=== PATIENT | female | born 1945 | race Caucasian/White ===

== ENCOUNTER 2017-01-23 15:12 | Inpatient (IN) | payer MEDICARE ==
[~2017-01-23] VITALS: Ht 167.6 cm; Wt 106.6 kg
[2017-01-23] MEDS ORDERED: fentaNYL PF VIAL 100 MCG/2 ML VIAL IV ONE (15:30)
[2017-01-23] MEDS ORDERED: DIPHTH,PERTUSS(ACELL),TET TOX 0.5 ML DISP.SYRIN. VAX IM ONE (15:30)
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
[2017-01-23] MEDS ORDERED: KETOROLAC TROMETHAMINE 30 MG/ML INJ. IV ONE (17:00)
[2017-01-23] MEDS ORDERED: MORPHINE SULFATE 10 MG/ML VIAL. IV ONE (17:00)
[2017-01-23] MEDS ORDERED: OXYC-323 PO (17:02)
[2017-01-23] MEDS ORDERED: DIAZ5TAB PO (17:02)
[2017-01-23] MEDS ORDERED: diazePAM 5 MG TABLET PO ONE (17:45)
[2017-01-23 18:38] LABS: BASO # 0.1 x10^3/uL (0.0-0.2); BASO % 1 % (0-3); EOS % 1 % (0-3); HEMATOCRIT 40.5 % (36.0-47.0); HEMOGLOBIN 13.9 g/dL (12.0-15.5); LYMPH # 1.7 x10^3/uL (1.0-4.8); LYMPH % 12 % (24-48); MEAN CORPUSCULAR HEMOGLOBIN 29 pg (25-35); MEAN CORPUSCULAR HGB CONC 34 g/dL (31-37); MEAN CORPUSCULAR VOLUME 85 fL (79-100); MONO % 7 % (0-9); NEUT % 79 % (31-73); PLATELET COUNT 289 x10^3/uL (140-400); RED BLOOD COUNT 4.76 x10^6/uL (3.50-5.40); RED CELL DISTRIBUTION WIDTH 13.4 % (11.5-14.5); WHITE BLOOD COUNT 13.9 x10^3/uL (4.0-11.0)
--- NOTE | 2017-01-23 19:09 | ACF ---
Admission Forms Criteria MUSCULOSKELETAL DISEASE GRG Clinical Indications for Admission to Inpatient Care (Place 'X' for any and all applicable criteria): Hospital admission is needed for appropriate care of the patient because of 1 or more of the following: [ XI. Fracture, dislocation, or other musculoskeletal injury requiring inpatient care(medical) as indicated by 1 or more of the following(4)(5)(6)(7) [ ]a) Vertebral fracture requiring observation for instability or neurologic compromise (8) [ ]b) Compartment syndrome (proven or cannot be ruled out during observation level of care) (9) [ ]c) Limb-threatening injury [ ]d) Major injury requiring inpatient stabilization such as traction initiation or external fixation before internal fixation or closure of complex or open fracture [ ]e) Major injury requiring inpatient treatment after emergency or observation level care (as appropriate) [X]f) Severe pain requiring acute inpatient management [ ]g) Injury with suspicion of abuse or neglect (eg., child, dependent elderly) [ ]II. Newly diagnosed or suspected bone, joint, or orthopedic device infection (e.g., osteomyelitis, septic arthritis) needing 1 or more of the following(1)(2)(3) [ ]a) IV antibiotics that cannot be initiated in other than inpatient setting (e.g., patient too unstable or home infusion not available) [ ]b) Device removal or replacement [ ]c) Bone or soft tissue debridement [ ]d) Joint drainage (drain placement or repetitive aspirations) [ ]III. Severe rheumatologic disease (e.g., systemic lupus erythematosus, rheumatoid arthritis) with complications or comorbidities (Also use Optimal Recovery Care Criteria or General Recovery Criteria as appropriate on the basis of predominant condition), including 1 or more of the following( 10)(11)(12)(13) [ ]a) Severe infection (e.g., COTTON INSPECTOR infection, sepsis) (14) [ ]b) Respiratory complications, including 1 or more of the following : [ ]i) Pleural effusion with respiratory compromise [ ]ii) Pulmonary hypertension with congestive failure [ ]iii) Respiratory failure [ ]iv) Pulmonary hemorrhage (15) [ ]c) Hematologic disease, including 1 or more of the following: [ ]i) Coagulopathy with bleeding [ ]ii) Thrombosis with hypercoagulable state [ ]iii) Thrombotic thrombocytopenic purpura [ ]d) Cerebritis with seizures, psychosis, or other severe abnormalities [ ]e) Vertebral destruction with monitoring needed for cervical myelopathy& possible respiratory compromise [ ]f) Exacerbation that requires inpatient treatment (e.g., intravenous immunosuppression) (16) [ ]g) Acute renal failure [ ]h) Cerebritis with seizures, psychosis, Altered mental status, or other neurologic abnormalities [ ]i) Pericardial effusion with tamponade [ ]j) Vertebral destruction, with monitoring needed for cervical myelopathy and possible respiratory compromise [ ]IV. Severe vasculitis with complications or comorbidities (Also use Optimal Recovery Care Criteria General Recovery Criteria as appropriate on the basis of predominant condition), including 1 or more of the following(11)(12)(17)(18)(19)(20) [ ]a) Exacerbation that requires inpatient treatment (e.g., intravenous immunosuppression) (19)(21) [ ]b) Pulmonary hemorrhage (15) [ ]c) COTTON INSPECTOR vasculitis with seizures, psychosis, Altered mental status that is severe or persistent, or other severe abnormalities (22) [ ]d) Cerebral infarction [ ]e) Gastrointestinal ischemia [ ]f) Gangrene or threatened amputation [ ]g) Renal failure (16) [ ]h) Other significant complications of vasculitis ( eg., tissue or organ ischemia, organ dysfunction ) [ ]V. Severe myopathy as indicated by 1 or more of the following (28)(29) [ ]a) New onset of airway compromise or inability to swallow [ ]b) Respiratory deterioration with observation needed for impending respiratory failure [ ]c) Exacerbation that requires inpatient treatment (e.g., intravenous immunosuppression) [ ]. Severe crystal gout (arthropathy) indicated by 1 or more of the following (23)(24) [ ]a) Severe pain requiring acute inpatient management [ ]b) Exacerbation that requires inpatient treatment (e.g., intravenous treatment) [ ]VII.Rhabdomyolysis and 1 or more of the following (25)(26)(27) [ ]a) Acute renal failure [ ]b) Need for intravenous hydration after emergency or observation level care (as appropriate) [ ]c) Inability to maintain oral hydration [ ]d) Change in mental status [ ]e) Electrolyte abnormality that remains after emergency or observation level care (as appropriate) [ ]VIII Post amputation complication, as indicated by ANY ONE of the following [ ]a) Infection [ ]b) Dehiscence [ ]c) Myodesis failure [ ]IX. Severe pain requiring acute inpatient management due to musculoskeletal condition [ ]X. Musculoskeletal Disease and ALL of the following: [ ]a) Symptom or finding for which emergency and observation care have failed or are not considered appropriate (Use General Criteria: Observation Care as appropriate) [ ]b) Presence of ANY ONE of the following [ ]i) A General Admission Criteria [ ]ii) A Pediatric General Admission Criteria The original [facility] [employer] content created by [facility] has been revised. The portions of the content which have been revised are identified through the use of italic text or in bold, and [facility] has neither reviewed nor approved the modified material. All other unmodified content is copyright [facility]. Please see references footnoted in the original [facility] edition 2016 Admission Criteria Met?: Yes ZACH REYNOSO January 23, 2017 19:09
[2017-01-23 19:13] LABS: CALCIUM 8.7 mg/dL (8.5-10.1); CREATININE 0.9 mg/dL (0.6-1.0); GFR 61.9; POTASSIUM 3.9 mmol/L (3.5-5.1)
[2017-01-23 19:15] VITALS: BP 183/66
[2017-01-23 19:20] LABS: PROTHROMBIN TIME PATIENT 12.9 SEC (11.7-14.0)
[2017-01-23] MEDS: ONDANSETRON PF 4 MG/2 ML VIAL. IV PRN (21:15)
[2017-01-23] MEDS ORDERED: METH750T2 PO (22:07)
[2017-01-23] MEDS: ZOLPIDEM 5 MG TABLET. PO PRN (22:10)
[2017-01-23] MEDS: MORPHINE SULFATE 4 MG/ML DISP.SYRIN. IV PRN (22:10)
[2017-01-23 23:15] VITALS: BP 173/99
[2017-01-23] MEDS: amLODIPine BESYLATE 10 MG TABLET PO SCH (23:58)
[2017-01-24] MEDS: MORPHINE SULFATE 4 MG/ML DISP.SYRIN. IV PRN ×3 (00:02→11:12)
[2017-01-24] MEDS: HYDROcodone/APAP 5/325MG 1 TAB TABLET PO PRN ×2 (00:02→07:53)
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
[2017-01-24 03:15] VITALS: BP 159/76
[2017-01-24 04:57] LABS: BASO % 0 % (0-3); EOS % 1 % (0-3); HEMATOCRIT 38.6 % (36.0-47.0); HEMOGLOBIN 13.1 g/dL (12.0-15.5); LYMPH # 2.1 x10^3/uL (1.0-4.8); LYMPH % 21 % (24-48); MEAN CORPUSCULAR HEMOGLOBIN 29 pg (25-35); MEAN CORPUSCULAR HGB CONC 34 g/dL (31-37); MEAN CORPUSCULAR VOLUME 85 fL (79-100); MONO % 10 % (0-9); NEUT % 67 % (31-73); PLATELET COUNT 272 x10^3/uL (140-400); RED BLOOD COUNT 4.52 x10^6/uL (3.50-5.40); RED CELL DISTRIBUTION WIDTH 13.4 % (11.5-14.5); WHITE BLOOD COUNT 9.9 x10^3/uL (4.0-11.0)
[2017-01-24 05:20] LABS: CALCIUM 8.6 mg/dL (8.5-10.1); CREATININE 0.8 mg/dL (0.6-1.0); GFR 70.9; POTASSIUM 3.7 mmol/L (3.5-5.1)
[2017-01-24 07:00] VITALS: BP 150/69
[2017-01-24] MEDS: amLODIPine BESYLATE 10 MG TABLET PO SCH (07:52)
[2017-01-24] MEDS: ONDANSETRON PF 4 MG/2 ML VIAL. IV PRN (07:58)
[2017-01-24 11:00] VITALS: BP 138/66
--- NOTE | 2017-01-24 12:22 | PDOC ---
PROGRESS NOTES Chief Complaint Chief Complaint 1. Concussion 2. Cervical strain, acute 3. Closed head injury 4. R shoulder strain 5. Osteoarthritis 6. Cholecystectomy 7. Partial hip replacement 8. L knee SX 9. Achilles tendon SX History of Present Illness History of Present Illness Patient seen this am in NAD Informed patient her bp is elevated and that we'll give her lisinopril to help Informed patient we will continue pain medications Patient wishes to stay another day Patient understands plan of action Vitals Vitals Vital Signs Date Time Temp Pulse Resp B/P (MAP) Pulse Ox O2 Delivery O2 Flow Rate FiO2 01/24/17 11:12 16 91 Room Air 01/24/17 11:00 97.8 78 138/66 (90) 97.8 Physical Exam General: Alert, Cooperative, No acute distress Heart: Regular rate, Normal S1, Normal S2 Lungs: Clear Abdomen: No hepatosplenomegaly, No masses Extremities: No clubbing, No cyanosis Skin: No rashes, No breakdown, No significant lesion Labs LABS Laboratory Tests Test 01/23/17 18:30 01/23/17 19:00 01/24/17 04:30 White Blood Count 13.9 x10^3/uL (4.0-11.0) 9.9 x10^3/uL (4.0-11.0) Red Blood Count 4.76 x10^6/uL (3.50-5.40) 4.52 x10^6/uL (3.50-5.40) Hemoglobin 13.9 g/dL (12.0-15.5) 13.1 g/dL (12.0-15.5) Hematocrit 40.5 % (36.0-47.0) 38.6 % (36.0-47.0) Mean Corpuscular Volume 85 fL (79-100) 85 fL (79-100) Mean Corpuscular Hemoglobin 29 pg (25-35) 29 pg (25-35) Mean Corpuscular Hemoglobin Concent 34 g/dL (31-37) 34 g/dL (31-37) Red Cell Distribution Width 13.4 % (11.5-14.5) 13.4 % (11.5-14.5) Platelet Count 289 x10^3/uL (140-400) 272 x10^3/uL (140-400) Neutrophils (%) (Auto) 79 % (31-73) 67 % (31-73) Lymphocytes (%) (Auto) 12 % (24-48) 21 % (24-48) Monocytes (%) (Auto) 7 % (0-9) 10 % (0-9) Eosinophils (%) (Auto) 1 % (0-3) 1 % (0-3) Basophils (%) (Auto) 1 % (0-3) 0 % (0-3) Neutrophils # (Auto) 11.0 x10^3uL (1.8-7.7) 6.6 x10^3uL (1.8-7.7) Lymphocytes # (Auto) 1.7 x10^3/uL (1.0-4.8) 2.1 x10^3/uL (1.0-4.8) Monocytes # (Auto) 1.0 x10^3/uL (0.0-1.1) 1.0 x10^3/uL (0.0-1.1) Eosinophils # (Auto) 0.1 x10^3/uL (0.0-0.7) 0.1 x10^3/uL (0.0-0.7) Basophils # (Auto) 0.1 x10^3/uL (0.0-0.2) 0.0 x10^3/uL (0.0-0.2) Sodium Level 138 mmol/L (136-145) 137 mmol/L (136-145) Potassium Level 3.9 mmol/L (3.5-5.1) 3.7 mmol/L (3.5-5.1) Chloride Level 105 mmol/L (98-107) 104 mmol/L (98-107) Carbon Dioxide Level 27 mmol/L (21-32) 27 mmol/L (21-32) Anion Gap 6 (6-14) 6 (6-14) Blood Urea Nitrogen 19 mg/dL (7-20) 20 mg/dL (7-20) Creatinine 0.9 mg/dL (0.6-1.0) 0.8 mg/dL (0.6-1.0) Estimated GFR (Cockcroft-Gault) 61.9 70.9 Glucose Level 109 mg/dL (70-99) 112 mg/dL (70-99) Calcium Level 8.7 mg/dL (8.5-10.1) 8.6 mg/dL (8.5-10.1) Prothrombin Time 12.9 SEC (11.7-14.0) Prothromb Time International Ratio 1.0 (0.8-1.1) Activated Partial Thromboplast Time 29 SEC (24-38) Review of Systems Review of Systems No rashes No fever/chills No JVD Assessment and Plan Assessmemt and Plan Problems Medical Problems: (1) Cervical strain, acute Status: Acute (2) CHI (closed head injury) Status: Acute (3) Right shoulder strain Status: Acute 4. Concussion 5. Osteoarthritis 6. Cholecystectomy 7. Partial hip replacement 8. L knee SX 9. Achilles tendon SX Plan: -Continue current medications and adjust accordingly as needed. -Involve PT/OT. -Monitor potassium with blood draws. Last was 3.7. -Add lisinopril 10 mg PO- HTN since admission. -Continue speciality consultation. -Possible D/C tomorrow if speciality agrees. Problems: Comment Review of Relevant I have reviewed the following items sanjeev (where applicable) has been applied. Labs Laboratory Tests Test 01/23/17 18:30 01/23/17 19:00 01/24/17 04:30 White Blood Count 13.9 x10^3/uL (4.0-11.0) 9.9 x10^3/uL (4.0-11.0) Red Blood Count 4.76 x10^6/uL (3.50-5.40) 4.52 x10^6/uL (3.50-5.40) Hemoglobin 13.9 g/dL (12.0-15.5) 13.1 g/dL (12.0-15.5) Hematocrit 40.5 % (36.0-47.0) 38.6 % (36.0-47.0) Mean Corpuscular Volume 85 fL (79-100) 85 fL (79-100) Mean Corpuscular Hemoglobin 29 pg (25-35) 29 pg (25-35) Mean Corpuscular Hemoglobin Concent 34 g/dL (31-37) 34 g/dL (31-37) Red Cell Distribution Width 13.4 % (11.5-14.5) 13.4 % (11.5-14.5) Platelet Count 289 x10^3/uL (140-400) 272 x10^3/uL (140-400) Neutrophils (%) (Auto) 79 % (31-73) 67 % (31-73) Lymphocytes (%) (Auto) 12 % (24-48) 21 % (24-48) Monocytes (%) (Auto) 7 % (0-9) 10 % (0-9) Eosinophils (%) (Auto) 1 % (0-3) 1 % (0-3) Basophils (%) (Auto) 1 % (0-3) 0 % (0-3) Neutrophils # (Auto) 11.0 x10^3uL (1.8-7.7) 6.6 x10^3uL (1.8-7.7) Lymphocytes # (Auto) 1.7 x10^3/uL (1.0-4.8) 2.1 x10^3/uL (1.0-4.8) Monocytes # (Auto) 1.0 x10^3/uL (0.0-1.1) 1.0 x10^3/uL (0.0-1.1) Eosinophils # (Auto) 0.1 x10^3/uL (0.0-0.7) 0.1 x10^3/uL (0.0-0.7) Basophils # (Auto) 0.1 x10^3/uL (0.0-0.2) 0.0 x10^3/uL (0.0-0.2) Sodium Level 138 mmol/L (136-145) 137 mmol/L (136-145) Potassium Level 3.9 mmol/L (3.5-5.1) 3.7 mmol/L (3.5-5.1) Chloride Level 105 mmol/L (98-107) 104 mmol/L (98-107) Carbon Dioxide Level 27 mmol/L (21-32) 27 mmol/L (21-32) Anion Gap 6 (6-14) 6 (6-14) Blood Urea Nitrogen 19 mg/dL (7-20) 20 mg/dL (7-20) Creatinine 0.9 mg/dL (0.6-1.0) 0.8 mg/dL (0.6-1.0) Estimated GFR (Cockcroft-Gault) 61.9 70.9 Glucose Level 109 mg/dL (70-99) 112 mg/dL (70-99) Calcium Level 8.7 mg/dL (8.5-10.1) 8.6 mg/dL (8.5-10.1) Prothrombin Time 12.9 SEC (11.7-14.0) Prothromb Time International Ratio 1.0 (0.8-1.1) Activated Partial Thromboplast Time 29 SEC (24-38) Laboratory Tests Test 01/23/17 18:30 01/23/17 19:00 01/24/17 04:30 White Blood Count 13.9 x10^3/uL (4.0-11.0) 9.9 x10^3/uL (4.0-11.0) Red Blood Count 4.76 x10^6/uL (3.50-5.40) 4.52 x10^6/uL (3.50-5.40) Hemoglobin 13.9 g/dL (12.0-15.5) 13.1 g/dL (12.0-15.5) Hematocrit 40.5 % (36.0-47.0) 38.6 % (36.0-47.0) Mean Corpuscular Volume 85 fL (79-100) 85 fL (79-100) Mean Corpuscular Hemoglobin 29 pg (25-35) 29 pg (25-35) Mean Corpuscular Hemoglobin Concent 34 g/dL (31-37) 34 g/dL (31-37) Red Cell Distribution Width 13.4 % (11.5-14.5) 13.4 % (11.5-14.5) Platelet Count 289 x10^3/uL (140-400) 272 x10^3/uL (140-400) Neutrophils (%) (Auto) 79 % (31-73) 67 % (31-73) Lymphocytes (%) (Auto) 12 % (24-48) 21 % (24-48) Monocytes (%) (Auto) 7 % (0-9) 10 % (0-9) Eosinophils (%) (Auto) 1 % (0-3) 1 % (0-3) Basophils (%) (Auto) 1 % (0-3) 0 % (0-3) Neutrophils # (Auto) 11.0 x10^3uL (1.8-7.7) 6.6 x10^3uL (1.8-7.7) Lymphocytes # (Auto) 1.7 x10^3/uL (1.0-4.8) 2.1 x10^3/uL (1.0-4.8) Monocytes # (Auto) 1.0 x10^3/uL (0.0-1.1) 1.0 x10^3/uL (0.0-1.1) Eosinophils # (Auto) 0.1 x10^3/uL (0.0-0.7) 0.1 x10^3/uL (0.0-0.7) Basophils # (Auto) 0.1 x10^3/uL (0.0-0.2) 0.0 x10^3/uL (0.0-0.2) Sodium Level 138 mmol/L (136-145) 137 mmol/L (136-145) Potassium Level 3.9 mmol/L (3.5-5.1) 3.7 mmol/L (3.5-5.1) Chloride Level 105 mmol/L (98-107) 104 mmol/L (98-107) Carbon Dioxide Level 27 mmol/L (21-32) 27 mmol/L (21-32) Anion Gap 6 (6-14) 6 (6-14) Blood Urea Nitrogen 19 mg/dL (7-20) 20 mg/dL (7-20) Creatinine 0.9 mg/dL (0.6-1.0) 0.8 mg/dL (0.6-1.0) Estimated GFR (Cockcroft-Gault) 61.9 70.9 Glucose Level 109 mg/dL (70-99) 112 mg/dL (70-99) Calcium Level 8.7 mg/dL (8.5-10.1) 8.6 mg/dL (8.5-10.1) Prothrombin Time 12.9 SEC (11.7-14.0) Prothromb Time International Ratio 1.0 (0.8-1.1) Activated Partial Thromboplast Time 29 SEC (24-38) Medications Current Medications Fentanyl Citrate (Fentanyl 2ml Vial) 75 mcg 1X ONCE IV Last administered on 15:53; Start 01/23/17 at 15:30; Stop 01/23/17 at 15:37; Status DC Diphtheria/ Tetanus/Acell Pertussis (Boostrix) 0.5 ml ONCE ONCE VAX IM Last administered on 01/23/17 15:54; Start 01/23/17 at 15:30; Stop 01/23/17 at 15:37 ; Status DC Morphine Sulfate 5 mg 1X ONCE IV Last administered on 01/23/17 17:13; Start 01/23/17 at 17:00; Stop 01/23/17 at 17:01; Status DC Ketorolac Tromethamine (Toradol) 30 mg 1X ONCE IV Last administered on 17:12; Start 01/23/17 at 17:00; Stop 01/23/17 at 17:01; Status DC Ondansetron HCl (Zofran) 4 mg PRN Q8HRS PRN IV NAUSEA/VOMITING Last administered on 01/24/17 07:58; Start 01/23/17 at 17:45; Stop 01/24/17 at 17:44 Morphine Sulfate 4 mg PRN Q2HR PRN IV PAIN Last administered on 01/24/17 11:12 ; Start 01/23/17 at 17:45; Stop 01/24/17 at 17:44 Diazepam (Valium) 5 mg 1X ONCE PO Last administered on 01/23/17 18:19; Start 01/23/17 at 17:45; Stop 01/23/17 at 17:46; Status DC Zolpidem Tartrate (Ambien) 5 mg PRN QHS PRN PO INSOMNIA, MAY REPEAT IN 1HR Last administered on 01/23/17 22:10; Start 01/23/17 at 19:30 Amlodipine Besylate (Norvasc) 10 mg DAILY PO Last administered on 01/24/17 07: 52; Start 01/23/17 at 23:45 Acetaminophen/ Hydrocodone Bitart (Lortab 5/325) 1 tab PRN Q6HRS PRN PO SEVERE PAIN Last administered on 01/24/17 07:53; Start 01/23/17 at 23:30 Active Scripts Active Valium (Diazepam) 5 Mg Tablet 5 Mg PO TID PRN Percocet 5-325 Mg Tablet (Oxycodone/Acetaminophen) 1 Each Tablet 1 Tab PO PRN Q6HRS PRN Reported Methocarbamol 750 Mg Tablet 750 Mg PO TID Vitals/I & O Vital Sign - Last 24 Hours 01/23/17 01/23/17 01/23/17 01/23/17 15:23 15:50 15:53 16:20 Temp 98.2 98.2 Pulse 97 90 86 Resp 20 18 18 18 B/P (MAP) 194/94 (127) 184/90 (121) 172/84 (113) Pulse Ox 97 97 96 97 O2 Delivery Room Air Room Air Room Air Room Air 01/23/17 01/23/17 01/23/17 01/23/17 16:50 17:13 17:20 17:50 Pulse 86 85 82 Resp 18 16 18 18 B/P (MAP) 173/77 (109) 213/95 (134) 191/88 (122) Pulse Ox 96 96 96 96 O2 Delivery Room Air Room Air Room Air Room Air 01/23/17 01/23/17 01/23/17 01/23/17 18:20 19:15 20:00 23:15 Temp 97.9 98.1 97.9 98.1 Pulse 84 83 89 Resp 18 18 16 B/P (MAP) 175/84 (114) 183/66 (105) 173/99 (123) Pulse Ox 97 92 94 O2 Delivery Room Air Room Air Room Air Room Air 01/23/17 01/24/17 01/24/17 01/24/17 23:58 03:15 07:00 07:52 Temp 98.0 98.2 98.0 98.2 Pulse 89 80 82 82 Resp 18 20 B/P (MAP) 173/99 159/76 (103) 150/69 (96) 150/69 Pulse Ox 93 93 O2 Delivery Room Air Room Air 01/24/17 01/24/17 01/24/17 01/24/17 07:53 08:00 08:53 11:00 Temp 97.8 97.8 Pulse 78 Resp 16 16 20 B/P (MAP) 138/66 (90) Pulse Ox 93 93 91 O2 Delivery Room Air Room Air Room Air Room Air 01/24/17 11:12 Resp 16 Pulse Ox 91 O2 Delivery Room Air Intake and Output 01/23/17 01/23/17 01/24/17 14:59 22:59 06:59 Intake Total 50 ml Balance 50 ml ALEJANDRA SCHUMACHER III, DO January 24, 2017 12:21
[2017-01-24] MEDS ORDERED: PROCHLORPERAZINE 10 MG/2 ML VIAL. IV PRN (14:15)
[2017-01-24] MEDS: LISINOPRIL 10 MG TABLET PO SCH (14:21)
[2017-01-24 15:00] VITALS: BP 136/75
[2017-01-24 19:47] VITALS: BP 138/73
[2017-01-24] MEDS ORDERED: MORPHINE SULFATE 2 MG/ML DISP.SYRIN. IV PRN (21:00)
[2017-01-24] MEDS: IBUPROFEN 400 MG TABLET. PO SCH (21:07)
[2017-01-24] MEDS: ZOLPIDEM 5 MG TABLET. PO PRN (22:08)
[2017-01-24 22:10] VITALS: BP 133/65
[2017-01-25] MEDS: HYDROcodone/APAP 5/325MG 1 TAB TABLET PO PRN (02:12)
[2017-01-25 03:39] VITALS: BP 128/73
[2017-01-25 05:36] LABS: BASO % 0 % (0-3); EOS % 2 % (0-3); HEMATOCRIT 39.3 % (36.0-47.0); HEMOGLOBIN 13.3 g/dL (12.0-15.5); LYMPH # 1.8 x10^3/uL (1.0-4.8); LYMPH % 15 % (24-48); MEAN CORPUSCULAR HEMOGLOBIN 29 pg (25-35); MEAN CORPUSCULAR HGB CONC 34 g/dL (31-37); MEAN CORPUSCULAR VOLUME 86 fL (79-100); MONO % 9 % (0-9); NEUT % 74 % (31-73); PLATELET COUNT 289 x10^3/uL (140-400); RED BLOOD COUNT 4.56 x10^6/uL (3.50-5.40); RED CELL DISTRIBUTION WIDTH 13.6 % (11.5-14.5); WHITE BLOOD COUNT 11.9 x10^3/uL (4.0-11.0)
[2017-01-25 05:42] LABS: CALCIUM 8.6 mg/dL (8.5-10.1); CREATININE 0.8 mg/dL (0.6-1.0); GFR 70.9; POTASSIUM 4.1 mmol/L (3.5-5.1)
[2017-01-25 07:00] VITALS: BP 165/85
[2017-01-25] MEDS: IBUPROFEN 400 MG TABLET. PO SCH (08:11)
[2017-01-25] MEDS: LISINOPRIL 10 MG TABLET PO SCH (08:11)
[2017-01-25] MEDS: amLODIPine BESYLATE 10 MG TABLET PO SCH (08:12)
[2017-01-25 11:00] VITALS: BP 105/54
== END 2017-01-25 11:59 | disposition home or self-care (01) | DRG 552 ==
LOC: ER 16:41 → 6 SOUTH 17:21
PROVIDERS: ADMIT Internal Medicine; ATTEND Internal Medicine
DX: S16.1XXA Strain of muscle, fascia and tendon at neck level, initial encounter (principal); S06.0X9A Concussion with loss of consciousness of unspecified duration, initial encounter; S46.911A Strain of unspecified muscle, fascia and tendon at shoulder and upper arm level, right arm, initial encounter; Z96.642 Presence of left artificial hip joint; M19.90 Unspecified osteoarthritis, unspecified site; Z82.49 Family history of ischemic heart disease and other diseases of the circulatory system; Y93.89 Activity, other specified; V89.2XXA Person injured in unspecified motor-vehicle accident, traffic, initial encounter; Y92.89 Other specified places as the place of occurrence of the external cause; Y99.8 Other external cause status; Z88.5 Allergy status to narcotic agent; Z88.8 Allergy status to other drugs, medicaments and biological substances
CPT/HCPCS: 36415; 70450; 72125; 73030; 73110; 73502; 80048; 85027; 85610; 85730; 90471; 90715; 96374; 96375; J0780; J1885; J2270; J2405; J3010; 99285-25

== ENCOUNTER → 2017-06-05 | Outpatient (CLI) | payer MEDICARE ==
[~2017-06-05] MED LIST: DIAZ5TAB PO; METH750T2 PO; OXYC-323 PO
--- NOTE | 2017-06-05 10:34 | KCIC ---
Examination: MRI of the right shoulder without contrast HISTORY: History of right shoulder pain for 4 months. COMPARISON: None available TECHNIQUE: Multiplanar, multisequence MR imaging of the right shoulder performed without contrast FINDINGS: The long head of the biceps tendon is dislocated medially underneath the fibers of the subscapularis tendon, best visualized on series 3 image #15. There is full-thickness tear of the subscapularis tendon with tendon retraction up to 1.9 cm medially. There is full-thickness tear of the supraspinatus tendon with tendon retraction to the level of the glenoid with tendon retraction measuring up to 4.2 cm. There is moderate tendinosis of the infraspinatus, supraspinatus and subscapularis tendon. Few of the anterior fibers of the infraspinatus tendon appear torn.The posterior fibers of the intraspinous tendon appear intact. There is extension of fluid into subacromial subdeltoid bursa. The humerus head is slightly translated superiorly in relation to the glenoid. Moderate to severe degenerative change acromioclavicular joint. Acromion is type II. There is increased signal noted throughout the labrum likely degeneration. Small subchondral cyst identified in the posterior glenoid. Moderate shoulder joint effusion. There is mild muscle bulk loss identified in the subscapulars, supraspinatus muscle with moderate fatty atrophic changes. Moderate degenerative changes glenohumeral joint. IMPRESSION: 1. Full-thickness tear with tendon retraction of the supraspinatus and subscapularis tendons. Few of the anterior fibers of the infraspinatus tendon appear torn. The long head of the biceps tendon is dislocated medially deep to fibers of the subscapularis tendon. 2. Moderate to severe degenerative changes at the mid clavicular joint. Moderate degenerative changes glenohumeral joint. 3. Moderate tendinosis intra-articular portion of the long head of the biceps tendon, supraspinatus, subscapularis and infraspinatus tendons. 4. Mild muscle bulk loss identified in the subscapulars, supraspinatus muscle with moderate fatty atrophic changes. Electronically signed by: Anil Webster MD (06/05/2017 10:31 AM) [id number]
--- NOTE | 2017-06-05 13:05 | KCIC ---
Examination: 2 views of the right knee HISTORY: History of right knee pain laterally COMPARISON: None available FINDINGS: The alignment of the knee joint grossly appears unremarkable. There is no acute fracture or dislocation identified. Moderate joint space loss identified in the medial, lateral, patellofemoral compartments. Small knee joint effusion. Faint calcifications project in the medial meniscus region , question mild chondrocalcinosis. IMPRESSION: 1. Moderate tricompartmental degenerative changes. 2. Small knee joint effusion. 3. Probable chondrocalcinosis medial meniscus. Electronically signed by: Anil Webster MD (06/05/2017 1:02 PM) [id number]
== END | disposition home or self-care (01) ==
LOC: KCIC MRI 08:53
PROVIDERS: ATTEND Orthopaedic Surgery Sports Medicine
DX: M75.101 Unspecified rotator cuff tear or rupture of right shoulder, not specified as traumatic (principal); M11.261 Other chondrocalcinosis, right knee; M25.461 Effusion, right knee; X58.XXXA Exposure to other specified factors, initial encounter; Y93.89 Activity, other specified; Y92.89 Other specified places as the place of occurrence of the external cause; Y99.8 Other external cause status
CPT/HCPCS: 73221; 73560